=== PATIENT | male | born 1975 | race African-American/Black ===

== ENCOUNTER → 2023-02-21 | Day surgery (SDC) | payer BC ==
[~2023-02-21] MED LIST: FENTANYL CITRATE/PF 100MCG/2 ML INJ ONE; GLUCAGON FOR INJ 1 MG VIAL ONE; HYOSCYAMINE SULFATE 0.5 MG/ML INJ ONE; LACTATED RINGER'S 1,000 ML ONE; LIDOCAINE HCL 2% LOCAL INJ 5 ML SDV VIAL INJ ONE; MIDAZOLAM HCL 2 MG/2 ML VIAL ONE; PHENYLEPHRINE HCL 1% 10 MG/ML VIAL ONE; PROPOFOL IV EMULSION 10 MG/ML 50 ML VIAL IV ONE; VITAMIN D250 MCG
[2023-02-21 16:42] VITALS: TEMP 97.1
[2023-02-21 16:55] VITALS: BP 101/78; PULSE 84; RESP 17; O2SAT 96
== END | disposition home or self-care (01) ==
LOC: OR 14:15
PROVIDERS: ATTEND Internal Medicine Gastroenterology
DX: Z12.11 Encounter for screening for malignant neoplasm of colon (principal); D12.2 Benign neoplasm of ascending colon; D12.3 Benign neoplasm of transverse colon; D12.4 Benign neoplasm of descending colon; D12.5 Benign neoplasm of sigmoid colon; D36.10 Benign neoplasm of peripheral nerves and autonomic nervous system, unspecified; K62.1 Rectal polyp; K59.09 Other constipation; K62.5 Hemorrhage of anus and rectum; K64.8 Other hemorrhoids; K62.89 Other specified diseases of anus and rectum; Z71.3 Dietary counseling and surveillance; F17.210 Nicotine dependence, cigarettes, uncomplicated; Z71.6 Tobacco abuse counseling; Z01.810 Encounter for preprocedural cardiovascular examination; Z68.32 Body mass index [BMI] 32.0-32.9, adult; Z87.19 Personal history of other diseases of the digestive system
CPT/HCPCS: 45380; 45385; 93005; J1610; J1980; J2001; J2250; J2371; J2704; J3010; J7121; 45378

== ENCOUNTER 2024-06-16 14:37 | Emergency (ER) | payer BC ==
[~2024-06-16] VITALS: Ht 170.2 cm; Wt 93.4 kg
[~2024-06-16 14:37] MED LIST changes: -FENTANYL CITRATE/PF 100MCG/2 ML INJ ONE; -GLUCAGON FOR INJ 1 MG VIAL ONE; -HYOSCYAMINE SULFATE 0.5 MG/ML INJ ONE; -LACTATED RINGER'S 1,000 ML ONE; -LIDOCAINE HCL 2% LOCAL INJ 5 ML SDV VIAL INJ ONE; -MIDAZOLAM HCL 2 MG/2 ML VIAL ONE; -PHENYLEPHRINE HCL 1% 10 MG/ML VIAL ONE; -PROPOFOL IV EMULSION 10 MG/ML 50 ML VIAL IV ONE
[2024-06-16 14:45] VITALS: TEMP 98.4
[2024-06-16 15:11] LABS: BASOPHILS % 0.3 % (0.0-1.0); EOSINOPHILS % 0.5 % (0.0-6.0); HEMATOCRIT 45.3 % (38.2-49.6); HEMOGLOBIN 15.5 g/dL (14.0-18.0); LYMPHOCYTES # (AUTO) 1.8 (1.0-3.2); LYMPHOCYTES % 46.5 % (18.0-39.1); MEAN CORPUSCULAR HEMOGLOBIN 32.8 pg (28-32); MEAN CORPUSCULAR HGB CONC 34.2 g/dL (31-35); MONOCYTES # (AUTO) 0.5 (0.2-0.8); MONOCYTES % 14.2 % (4.4-11.3); NEUTROPHILS # (AUTO) 1.5 (2.1-6.9); NEUTROPHILS % 38.5 % (38.7-80.0); PLATELET COUNT 159 x10e3/uL (140-360); RED BLOOD COUNT 4.72 x10e6/uL (4.3-5.7); RED CELL DISTRIBUTION WIDTH 12.7 % (11.7-14.4); WHITE BLOOD COUNT 3.81 x10e3/uL (4.8-10.8)
[2024-06-16] MEDS ORDERED: SODIUM CHLORIDE FLUSH 10 ML SYR IV PRN (15:15)
[2024-06-16 15:26] LABS: INR 0.84; PARTIAL THROMBOPLASTIN TIME 25.8 seconds (23.8-35.5)
[2024-06-16 15:38] LABS: ALANINE AMINOTRANSFERASE 33 IU/L (0-55); ALBUMIN 4.6 g/dL (3.5-5.0); ALBUMIN/GLOBULIN RATIO 1.4 (0.8-2.0); ALKALINE PHOSPHATASE 47 IU/L (40-150); ANION GAP 14.1 mmol/L (8-16); BILIRUBIN,TOTAL 0.5 mg/dL (0.2-1.2); BLOOD UREA NITROGEN 14 mg/dL (7-26); BUN/CREATININE RATIO 12 (6-25); CALCIUM 9.9 mg/dL (8.4-10.2); CARBON DIOXIDE 28 mmol/L (22-29); CHLORIDE 102 mmol/L (98-107); CREATININE, SERUM 1.15 mg/dL (0.72-1.25); EST GLOMERULAR FILTRATION RATE 79 ML/MIN (>=60); GLUCOSE 80 mg/dL (74-118); POTASSIUM 4.1 mmol/L (3.5-5.1); SODIUM 140 mmol/L (136-145); TOTAL PROTEIN 7.8 g/dL (6.5-8.1)
[2024-06-16 15:54] LABS: TROPONIN I < 0.001 ng/mL (0-0.300)
[2024-06-16 16:25] VITALS: BP 168/110; PULSE 83
[2024-06-16] MEDS: METOPROLOL TARTRATE 25 MG TAB PO ONE (16:25)
[2024-06-16 17:24] VITALS: PULSE 77; RESP 14; O2SAT 98
[2024-06-16] MEDS ORDERED: LOSARTAN POTASS25 MG PO (17:41)
== END 2024-06-16 17:56 | disposition home or self-care (01) ==
LOC: ER 15:12
DX: R07.89 Other chest pain (principal); I10 Essential (primary) hypertension; R94.31 Abnormal electrocardiogram [ECG] [EKG]; F17.210 Nicotine dependence, cigarettes, uncomplicated
CPT/HCPCS: 36415; 71045; 80053; 84484; 85025; 85610; 85730; 93005; 99284

== ENCOUNTER → 2024-12-02 | Day surgery (SDC) | payer BC ==
[~2024-12-02] MED LIST changes: +FENTANYL CITRATE/PF 100MCG/2 ML INJ ONE; +HYOSCYAMINE SULFATE 0.5 MG/ML INJ ONE; +LIDOCAINE HCL 2% LOCAL INJ 5 ML SDV VIAL INJ ONE; +LOSARTAN POTASS25 MG PO; +ONDANSETRON HCL INJ 2MG/ML 2ML 2 MG/ML VIAL ONE; +PROPOFOL IV EMULSION 50 ML IV ONE
[2024-12-02] MEDS: LACTATED RINGER'S 1,000 ML ONE (11:12)
[2024-12-02 12:51] VITALS: TEMP 97
[2024-12-02 13:20] VITALS: BP 110/76; PULSE 72; RESP 18; O2SAT 98
== END | disposition home or self-care (01) ==
LOC: OR 10:30
PROVIDERS: ATTEND Internal Medicine Gastroenterology
DX: K62.89 Other specified diseases of anus and rectum (principal); K63.5 Polyp of colon; K52.9 Noninfective gastroenteritis and colitis, unspecified; K64.8 Other hemorrhoids; E66.01 Morbid (severe) obesity due to excess calories; I10 Essential (primary) hypertension; Z71.89 Other specified counseling; F17.210 Nicotine dependence, cigarettes, uncomplicated; Z71.6 Tobacco abuse counseling; Z01.810 Encounter for preprocedural cardiovascular examination; Z79.899 Other long term (current) drug therapy; Z68.31 Body mass index [BMI] 31.0-31.9, adult; Z71.3 Dietary counseling and surveillance
CPT/HCPCS: 45380; 93005; J1980; J2003; J2405; J2704; J3010; J7121; 45378